=== PATIENT | male | born 2000 | race Caucasian/White ===

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

== ENCOUNTER 2019-08-21 17:26 | Emergency (ER) | payer OTHER ==
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
[2019-08-21] MEDS ORDERED: Ketorolac *IM* INJ* 60 MG/2 ML VIAL IM ONE (19:22)
[2019-08-21 19:58] VITALS: BP 143/76
== END 2019-08-21 19:45 | disposition home or self-care (01) ==
LOC: ED 17:26
DX: S01.81XA Laceration without foreign body of other part of head, initial encounter (principal); S16.1XXA Strain of muscle, fascia and tendon at neck level, initial encounter; V49.50XA Passenger injured in collision with unspecified motor vehicles in traffic accident, initial encounter; Y92.410 Unspecified street and highway as the place of occurrence of the external cause
CPT/HCPCS: 12011; 70450; 72125; 96372; 99283; J1885